=== PATIENT | female | born 1945 | race Caucasian/White ===

== ENCOUNTER 2022-03-11 16:57 | Emergency (ER) | payer OTHER ==
[~2022-03-11] VITALS: Ht 162.6 cm; Wt 98.0 kg
[2022-03-11 17:00] VITALS: BP_SYST 136
--- NOTE | 2022-03-11 17:05 | NUR ---
Patient triaged and placed in waiting room. VSS and patient appears in no acute distress at this time. Accompanied by SPOUSE, awaiting available bed, and MD notified of need for MSE.
--- NOTE | 2022-03-11 17:47 | NUR ---
TAKEN TO RADIOLOGY VIA WHEELCHAIR.
[2022-03-11] MEDS ORDERED: CEPH-548 PO (19:01)
[2022-03-11] MEDS ORDERED: SULF1TAB47 PO (19:01)
--- NOTE | 2022-03-11 19:39 | NUR ---
1741- ER evaluated patient at this time
[2022-03-11 19:40] VITALS: BP_SYST 128
--- NOTE | 2022-03-11 19:40 | NUR ---
Patient given written and verbal discharge instructions and verbalizes understanding. ER MD discussed with patient the results and treatment provided. Patient in stable condition. Rx of Cephalexin and Bactrim sent to pharmacy by ER MD. Patient educated on pain management and to follow up with PMD. Opportunity for questions provided and answered.
== END 2022-03-11 19:40 | disposition home or self-care (01) ==
LOC: SED 16:57
DX: S99.921A Unspecified injury of right foot, initial encounter (principal); E11.621 Type 2 diabetes mellitus with foot ulcer; Z79.899 Other long term (current) drug therapy; X58.XXXA Exposure to other specified factors, initial encounter; Y93.89 Activity, other specified; Y92.89 Other specified places as the place of occurrence of the external cause; Y99.8 Other external cause status
CPT/HCPCS: 82962; 99283

== ENCOUNTER 2022-03-16 10:25 | Emergency (ER) | payer OTHER ==
[~2022-03-16 10:25] MED LIST: CEPH-548 PO; SULF1TAB47 PO
== END 2022-03-16 10:56 | disposition home or self-care (01) ==
LOC: SED 10:25
DX: Z48.00 Encounter for change or removal of nonsurgical wound dressing (principal)
CPT/HCPCS: 99281